=== PATIENT | female | born 1990 | race Two or more races ===

== ENCOUNTER 2019-01-12 05:59 | Inpatient (IN) | payer OTHER ==
[~2019-01-12] VITALS: Ht 154.9 cm; Wt 56.2 kg
[2019-01-12] MEDS ORDERED: PRENATAL TABLE1 EAC1 PO (12:03)
[2019-01-14] MEDS ORDERED: DOCUSATE SODIU100 MG PO (12:12)
== END 2019-01-14 13:19 | disposition home or self-care (01) | DRG 768 ==
LOC: LDR 05:59 → OB/GYN 14:25
PROVIDERS: ADMIT Obstetrics & Gynecology
PROC: 10E0XZZ Delivery of Products of Conception, External Approach (ICD-10-PCS; principal; 2019-01-12)
PROC: 0DQP0ZZ Repair Rectum, Open Approach (ICD-10-PCS; 2019-01-12)
PROC: 10907ZC Drainage of Amniotic Fluid, Therapeutic from Products of Conception, Via Natural or Artificial Opening (ICD-10-PCS; 2019-01-12)
PROC: 3E033VJ Introduction of Other Hormone into Peripheral Vein, Percutaneous Approach (ICD-10-PCS; 2019-01-12)
PROC: 4A1HXCZ Monitoring of Products of Conception, Cardiac Rate, External Approach (ICD-10-PCS; 2019-01-12)
DX: O70.3 Fourth degree perineal laceration during delivery (principal); Z37.0 Single live birth; Z3A.38 38 weeks gestation of pregnancy

== ENCOUNTER 2023-03-13 15:48 | Emergency (ER) | payer OTHER ==
[~2023-03-13] VITALS: Ht 154.9 cm; Wt 48.1 kg
[~2023-03-13 15:48] MED LIST: DOCUSATE SODIU100 MG PO; PRENATAL TABLE1 EAC1 PO
== END 2023-03-13 19:06 | disposition home or self-care (01) ==
LOC: ER 15:48 → EDBD 16:57 → ER 16:57
DX: R42 Dizziness and giddiness (principal)

== ENCOUNTER 2023-03-15 18:32 | Inpatient (IN) | payer OTHER ==
[~2023-03-15] VITALS: Ht 33 cm; Wt 49.4 kg
[2023-03-15 20:39] LABS: HEMATOCRIT 37.6 % (36.0-45.00); HEMOGLOBIN 13.1 g/dL (12.0-15.00); MEAN CELL VOLUME 88.5 fL (80.00-100.00); RED BLOOD COUNT 4.24 M/uL (4.00-6.00); RED CELL DISTRIBUTION WIDTH 12.4 % (11.5-14.5)
[2023-03-15 21:00] LABS: ALBUMIN 3.7 gm/dL (3.4-5.0); BILIRUBIN TOTAL 0.41 mg/dL (0.3-1.2); CALCIUM 8.8 mg/dL (8.5-10.1); CREATININE SERUM 0.5 mg/dL (0.55-1.02); GFR 142.98; GLOBULINA 4.1 G/DL (2.4-3.5); POTASSIUM 3.01 mEq/L (3.5-5.1); TOTAL PROTEIN 7.8 gm/dL (6.4-8.2)
[2023-03-15 21:22] LABS: PLATELET COUNT 67 K/uL (150-450)
[2023-03-16 02:00] LABS: ERYTHROCYTE SEDIMENTATION RATE 6 mm/hr
[2023-03-16 02:01] LABS: PLT IN CITRATE 48 K/uL (150-450)
[2023-03-16 02:07] LABS: INR 1.04; PARTIAL THROMBOPLASTIN TIME 29.9 SECONDS (22.0-34.0); PROTHROMBIN TIME 10.9 SECONDS (9.0-11.5)
[2023-03-16 02:39] LABS: URINE APPEARANCE Clear; URINE BILIRRUBIN Negative (NEGATIVE); URINE BLOOD Large; URINE COLOR Yellow; URINE GLUCOSE Negative (NEGATIVE); URINE LEUKOCYTE Negative; URINE NITRATE Negative; URINE PROTEIN Negative (NEGATIVE); URINE UROBILINOGEN 0.2 E.U./dl
[2023-03-16 02:42] LABS: URINE EPITHELIAL CELLS 1.6 uL (0.0-38.8); URINE RBC 51.8 uL (0.0-20.8)
[2023-03-16 03:21] LABS: URINE WBC 1.2 uL (0.0-23.2)
[2023-03-16 16:19] LABS: ALBUMIN 3.3 gm/dL (3.4-5.0); BILIRUBIN TOTAL 0.35 mg/dL (0.3-1.2); CALCIUM 8.5 mg/dL (8.5-10.1); CREATININE SERUM 0.45 mg/dL (0.55-1.02); GFR 161.47; GLOBULINA 3.4 G/DL (2.4-3.5); PHOSPHOROUS 3.2 mg/dL (2.5-4.9); POTASSIUM 3.3 mEq/L (3.5-5.1); TOTAL PROTEIN 6.7 gm/dL (6.4-8.2)
[2023-03-16 16:51] LABS: HEMATOCRIT 34.8 % (36.0-45.00); MEAN CELL VOLUME 88.3 fL (80.00-100.00); MEAN CORPUSCULAR HEMOGLOBIN 30.5 pg (27.00-32.0); MEAN CORPUSCULAR HGB CONC 34.6 g/dl (32.0-36.0); RED BLOOD COUNT 3.94 M/uL (4.00-6.00); RED CELL DISTRIBUTION WIDTH 12.7 % (11.5-14.5)
[2023-03-16 16:55] LABS: PLATELET COUNT 69 K/uL (150-450)
[2023-03-17 15:50] LABS: HEMATOCRIT 33.2 % (36.0-45.00); HEMOGLOBIN 11.8 g/dL (12.0-15.00); MEAN CELL VOLUME 89.1 fL (80.00-100.00); MEAN CORPUSCULAR HEMOGLOBIN 31.5 pg (27.00-32.0); MEAN CORPUSCULAR HGB CONC 35.4 g/dl (32.0-36.0); RED BLOOD COUNT 3.73 M/uL (4.00-6.00); RED CELL DISTRIBUTION WIDTH 12.6 % (11.5-14.5)
[2023-03-17 16:05] LABS: PLATELET COUNT 110 K/uL (150-450)
== END 2023-03-17 20:47 | disposition home or self-care (01) | DRG 813 ==
LOC: ER → EDBD 18:53 → ER 18:53 → MEDI 22:39
PROVIDERS: General Practice; ADMIT Internal Medicine; ATTEND Internal Medicine
PROC: BW40ZZZ Ultrasonography of Abdomen (ICD-10-PCS; principal; 2023-03-15)
DX: D69.6 Thrombocytopenia, unspecified (principal); N93.9 Abnormal uterine and vaginal bleeding, unspecified